=== PATIENT | male | born 1945 | race Caucasian/White ===

== ENCOUNTER 2017-01-10 09:52 | Emergency (ER) | payer OTHER, MEDICARE ==
[2017-01-10] MEDS ORDERED: BENZONATATE 100 MG CAP PO ONE (10:04)
[2017-01-10 10:07] VITALS: BP 158/85; PULSE 50; RESP 16; TEMP 97.5; O2SAT 94
--- NOTE | 2017-01-10 10:10 | EDPHY ---
H & P Time Seen by Provider: 01/10/17 10:03 HPI/ROS: HPI Cough congestion. 71-year-old male by private vehicle. He complains of a nonproductive cough, nasal congestion and rhinorrhea ongoing for 2 weeks now. No fever. No shortness of breath. No other complaints. ROS: Constitutional: No fever, no chills. No weakness. Eyes: No discharge. No changes in vision. ENT: No sore throat. As above. Respiratory: As above. No shortness of breath. Cardiac: No chest pain, no palpitations. Gastrointestinal: No abdominal pain, no vomiting, no diarrhea. Genitourinary: No hematuria. No dysuria or increased frequency with urination. Musculoskeletal: No back pain. No neck pain. No myalgias or arthralgias. Skin: No rashes. Neurological: No headache. No focal weakness or altered sensation. Past medical history: Gout. He takes allopurinol. Social history: Here by himself. Nonsmoker. No alcohol. Physical Exam: General Appearance: Alert, no distress. This patient is responding to questions appropriately and in full sentences. This patient appears well- hydrated and well-nourished. Eyes: Pupils equal and round no pallor or injection. No lid edema, erythema or injection. ENT, Mouth: Mucous membranes are moist. The pharyngeal tissues are unremarkable. No edema or swelling. No asymmetry suggestive of abscess. No erythema or exudates. Respiratory: There are no retractions, lungs are clear to auscultation with good air movement bilaterally. No tachypnea. Intermittent wet sounding cough. Cardiovascular: Regular rate and rhythm. No murmur. Neurological: Motor sensory function is grossly intact. Cranial nerves are normal. Gait is normal. Skin: Warm and dry, no rashes. Musculoskeletal: Neck is supple and nontender. Extremities are symmetrical. All joints range without pain or impingement. Psychiatric: No agitation. No depression. Database: EKG: Imaging: Chest x-ray PA and lateral; the cardiac mediastinal silhouette is unremarkable. No evidence of infiltrate or pneumothorax. No acute cardiopulmonary disease process noted. Interpreted by me. Procedures: Emergency department course: Patient given Tessalon parole for his cough after my evaluation. He will be sent for a chest x-ray to evaluate for possible pneumonia. His presentation is consistent with a viral bronchitis. 10:30 a.m., patient re-evaluated. Resting comfortably at this time. Results of his chest x-ray were discussed with him. Diagnosis of viral bronchitis/ viral upper respiratory infection discussed with him. Plan will be to treat supportively and prescribe anti tests is including Hycodan cough syrup to be taken at night as well as Tessalon Perle. He is in agreement with this. He is to follow up with his primary care physician for re-evaluation on Thursday. Return to emergency department precautions were reviewed with him. All of his questions were answered. He was discharged in good condition. Differential Diagnosis: The differential diagnosis on this patient includes but is not limited to viral upper respiratory infection, viral bronchitis. Serious bacterial infection, pneumonia unlikely. This represents a partial list of diagnoses considered. These considerations are based on history, physical exam, past history, reassessment and diagnostic testing. Constitutional: Initial Vital Signs Temperature (C) 36.4 C 01/10/17 10:01 Heart Rate 50 L 01/10/17 10:01 Respiratory Rate 16 01/10/17 10:01 Blood Pressure 158/85 H 01/10/17 10:01 O2 Sat (%) 94 01/10/17 10:01 O2 Delivery Mode Room Air Allergies/Adverse Reactions: allopurinol Allergy (Verified 01/10/17 10:01) Home Medications: Medication Instructions Recorded Benzonatate [Tessalon Pearles] 100 mg PO TID #12 cap 01/10/17 HYDROcodone/HOMATROPINE HYCODA 1 tsp PO Q4-6PRN PRN #120 ml 01/10/17 [Hycodan Syrup (RX)] Medical Decision Making - Data Points Medications Given: Discontinued Medications Benzonatate (Tessalon Pearles) 200 mg PO EDNOW ONE Stop: 01/10/17 10:05 Last Admin: 01/10/17 10:07 Dose: 200 mg Departure - Departure Disposition: Home, Routine, Self-Care Clinical Impression: Bronchitis, Upper respiratory infection Condition: Good Instructions: Upper Respiratory Infection (ED), Acute Bronchitis (ED) Additional Instructions: Read and follow provided instructions. No strenuous physical activity. Get plenty of rest. Keep well hydrated. Follow-up with your primary care physician in 1-2 days for re-evaluation. Take medication as prescribed for cough. Use Hycodan cough syrup at night to treat cough and to help you sleep. This has a narcotic in it. It may make her drowsy. Return to the emergency department for worsening cough, difficulty breathing, fever or other serious concerns. Referrals: Prince Lockwood MD [Primary Care Provider] - As per Instructions Prescriptions: Benzonatate [Tessalon Pearles] 100 mg PO TID #12 cap HYDROcodone/HOMATROPINE HYCODA [Hycodan Syrup (RX)] 1 tsp PO Q4-6PRN PRN #120 ml PRN Reason: Cough
== END 2017-01-10 10:53 | disposition home or self-care (01) ==
LOC: CED 09:52
DX: J06.9 Acute upper respiratory infection, unspecified (principal); J40 Bronchitis, not specified as acute or chronic
CPT/HCPCS: 71020-PO